=== PATIENT | female | born 1955 | race Caucasian/White ===

== ENCOUNTER → 2020-03-01 12:37 | Outpatient (CLI) | payer OTHER, BC, SELFPAY ==
--- NOTE | ~2020-03-01 | XR_ITS ---
XR shoulder RT min 2V DATE: 03/01/2020 13:28 INDICATION: Right shoulder pain TECHNIQUE: 4 views COMPARISON: None FINDINGS: There is prominent diffuse osteopenia. No fracture or dislocation, periosteal reaction or b one destruction or abnormal soft tissue calcification is detected. There is degenerative spurring of the thoracic spine. IMPRESSION: Prominent diffuse osteopenia Reviewed, dictated and finalized at location A.
== END ==
PROVIDERS: PCP Family Medicine; Visit Provider Family Medicine
DX: M25.511 Pain in right shoulder (principal); M85.811 Other specified disorders of bone density and structure, right shoulder
CPT/HCPCS: 73030

== ENCOUNTER 2020-06-04 08:31 | Outpatient (CLI) | payer OTHER, BC, SELFPAY ==
--- NOTE | ~2020-06-04 | MM_ITS ---
EXAMINATION: MM screening [facility] BI w emre HISTORY: Screening mammogram TECHNIQUE: Craniocaudal and mediolateral oblique 3-D tomosynthesis images were obtained and synthetic 2-D images were generated. CAD analysis was submitted and interpreted. COMPARISON: 12/01/2018, 07/23/2017, 02/07/2016 BREAST PARENCHYMAL COMPOSITION: There are scattered areas of fibroglandular density. FINDINGS: There is no evidence of suspicious mass, calcification, or architectural distortion to sugg est malignancy in either breast. There has been no suspicious interval change. IMPRESSION: 1. No mammographic evidence of malignancy. 2. Recommend routine screening mammography in one year. BI-RADS Category 1: Negative Reviewed, dictated and finalized at location A. ICAL SPECIALIST
== END 2020-06-04 08:32 | disposition home or self-care (01) ==
LOC: ANHIMG 08:36
PROVIDERS: PCP Family Medicine; Visit Provider Family Medicine
DX: Z12.31 Encounter for screening mammogram for malignant neoplasm of breast (principal)
CPT/HCPCS: 77063; 77067

== ENCOUNTER 2020-07-25 12:26 | Outpatient (CLI) | payer OTHER, BC, SELFPAY ==
--- NOTE | 2020-07-25 12:29 | ECHO_ITS ---
Patient Info Name: Raysa Herman Age: 64 years : 1955 Gender: Female Ht: 58 in Wt: 202 lbs BSA: 1.99 m2 HR: 73 bpm BP: 158 / 86 mmHg Heart Rhythm: Sinus Rhythm Technical Quality: Good Exam Date: 07/25/2020 12:55 PM Exam Location: [facility] Pulmonary Patient Status: Outpatient Admit Date: 07/25/2020 Staff Ordering Physician: Chasity Dumont PA-C Hair Blender: Licha Rose RDCS Attending Provider: Chasity Dumont PA-C Referring Physician: Julia WOODSON; Exam Type: CA echo doppler color flow Study Info Indications - NONRHEUMATIC AORTIC VALVE DISORDER Complete two-dimensional, color flow and Doppler transthoracic echocardiogram is performed. Summary 1. Complete two-dimensional, color flow and Doppler transthoracic echocardiogram is performed. 2. Left ventricular systolic function is normal, estimated at 65-70%. 3. There is no increased left ventricular wall thickness. 4. The left ventricular diastolic function is grade II diastolic dysfunction. 5. Left atrial chamber dimension is mildly enlarged. 6. There is mild aortic valve stenosis with a peak velocity of 220 cm/s, mean gradient of 11 mmHg, and aortic valve area of 1.5 cm2. 7. There is mild aortic valve calcification. 8. There is mild tricuspid valve regurgitation. 9. Mild pulmonary hypertension, estimated pulmonary arterial systolic pressure is 39 mmHg. Left Ventricle Left ventricular chamber dimension is normal. Left ventricular systolic function is normal, estimated at 65-70%. There is no increased left ventricular wall thickness. The left ventricular diastolic function is grade II diastolic dysfunction. Right Ventricle Right ventricular chamber dimension is normal. Right ventricular systolic function is normal. Left Atria Left atrial chamber dimension is mildly enlarged. Right Atria Right atrial chamber dimension is normal. Aortic Valve The aortic valve is trileaflet. There is mild aortic valve stenosis with a peak velocity of 220 cm/s, mean gradient of 11 mmHg, and aortic valve area of 1.5 cm2. There is no aortic valve regurgitation. There is mild aortic valve calcification. Pulmonic Valve The pulmonic valve is not well visualized. Mitral Valve The mitral valve has normal leaflets. There is trace mitral valve regurgitation. The mitral valve annulus is mildly calcified. Tricuspid Valve The tricuspid valve leaflets are normal. There is mild tricuspid valve regurgitation. Mild pulmonary hypertension, estimated pulmonary arterial systolic pressure is 39 mmHg. Pericardium/Pleural The pericardium appears normal. There is trivial pericardial effusion. Inferior Vena Cava Normal inferior vena cava with >50% collapse upon inspiration consistent with normal right atrial pressure, 5 mmHg. Aorta The aortic root size at the sinus of Valsalva is normal. Left Ventricular Outflow Tract Name Value Normal LVOT 2D LVOT Diameter 2.0 cm LVOT Doppler LVOT Peak Gradient 5 mmHg LVOT Mean Gradient 3 mmHg LVOT VTI 28 cm
== END 2020-07-25 12:27 | disposition home or self-care (01) ==
PROVIDERS: PCP Family Medicine; Visit Provider Physician Assistant
DX: I08.3 Combined rheumatic disorders of mitral, aortic and tricuspid valves (principal)
CPT/HCPCS: 93306

== ENCOUNTER → 2021-01-29 11:12 | Outpatient (CLI) | payer OTHER, SELFPAY ==
--- NOTE | ~2021-01-29 | XR_ITS ---
XR_CERV2-3V_CR DATE: 01/29/2021 11:26 INDICATION: Cervical radiculopathy TECHNIQUE: AP, open-mouth, lateral, swimmer views COMPARISON: None FINDINGS: There is straightening of the cervical spine. There is diffuse osteopenia. There is severe degenerative disc disease at C5-6 and C6-7 as well as uncovertebral joint spurring at C4-5 and to a greater extent C5-6 and C6-7. C1 and C2 are normally aligned and the odontoid process is intact. No fracture or dislocation or lock ed facet or prevertebral soft tissue swelling. IMPRESSION: Straightening Osteopenia Severe degenerative disc disease and prominent uncovertebral joint spurring at C5-6 and C6-7 Reviewed, dictated and finalized at Location A. Reviewed, dictated and finalized at location A.
== END ==
PROVIDERS: PCP Family Medicine; Visit Provider Physician Assistant
DX: M54.12 Radiculopathy, cervical region (principal); M85.88 Other specified disorders of bone density and structure, other site; M50.30 Other cervical disc degeneration, unspecified cervical region
CPT/HCPCS: 72040

== ENCOUNTER 2021-03-24 01:13 | Day surgery (SDC) | payer OTHER, SELFPAY ==
[2021-03-11 14:59] VITALS: BMI 47.2
[2021-03-24 08:45] VITALS: BP 183/77; PULSE 54; RESP 18; TEMP 36.6; O2SAT 100; BMI 45.7
--- NOTE | 2021-03-24 08:45 | WPDANESEPPF ---
Anes - Initial Pre Proc Eval Procedure: Operation Date: 03/24/21 09:30 Proposed Procedures p Screening Colonoscopy - Sebastian Wall MD Date/Time: 03/24/21 08:45 Surgeon: Sebastian Wall MD Pre Op Diagnosis: neoplasm screening Patient Data Age: 65 Gender: F Height: 1.47 m Weight: 102.5 kg Allergies Allergy/AdvReac Type Severity Reaction Status Date / Time propoxyphene Allergy Mild Nausea Verified 03/24/21 08:43 meperidine AdvReac Intermediate Vomiting Verified 03/24/21 08:43 NKFA Allergy Mild Unknown Uncoded 03/11/21 14:58 Home Medications Medication Instructions Recorded Confirmed Type blood sugar diagnostic #50 each 09/19/19 03/24/21 Rx blood-glucose meter #1 each 09/19/19 03/24/21 History blood-glucose meter #1 each 09/21/19 03/24/21 Rx garlic See Rx Instructions PO DAILY 06/27/20 03/24/21 History omega 5-raw-ubj-fish oil 1,000 mg 1 cap PO DAILY 06/27/20 03/24/21 History (120 mg-180 mg) capsule quinapril 40 mg tablet 40 mg PO BID #180 tablet 09/26/20 03/24/21 Rx amlodipine 5 mg tablet See Rx Instructions .ROUTE 09/30/20 03/24/21 Rx .COMPLEX #180 tablet metformin 500 mg tablet See Rx Instructions .ROUTE 12/27/20 03/24/21 Rx .COMPLEX #180 tablet metoprolol tartrate 50 mg tablet See Rx Instructions .ROUTE 12/30/20 03/24/21 Rx .COMPLEX #180 tablet sitagliptin 100 mg tablet See Rx Instructions .ROUTE 01/13/21 03/24/21 Rx .COMPLEX #90 tablet atorvastatin 10 mg tablet See Rx Instructions .ROUTE 01/20/21 03/24/21 Rx .COMPLEX #90 tablet meloxicam 15 mg tablet 15 mg PO DAILY #90 tablet 01/29/21 03/24/21 Rx empagliflozin 10 mg tablet See Rx Instructions .ROUTE 01/31/21 03/24/21 Rx .COMPLEX #90 tablet levothyroxine 137 mcg tablet See Rx Instructions .ROUTE 01/31/21 03/24/21 Rx .COMPLEX #90 tablet metoprolol tartrate 100 mg tablet See Rx Instructions .ROUTE 02/28/21 03/24/21 Rx .COMPLEX #180 tablet Patient hx anesthesia problems: none Family hx anesthesia problems: none Results Review: All pre-operative results and documents have been reviewed as part of the pre-operative evaluation. [facility] Past Medical History Medical History (Updated 02/13/21 @ 10:48 by Chasity Dumont PA-C) Hepatitis C antibody test negative (12/20/18) History of mammogram (~02/07/16) Pap smear for cervical cancer screening (~07/12/12) Surgical History Surgical History History of section (~1980) History of section (~1976) Family History Family History Father Diabetes mellitus Hypertension Carcinoma of colon Family history of Alzheimer's disease Family history of elevated blood lipids Mother Diabetes mellitus Hypertension Family history of elevated blood lipids Family history of cardiovascular disease Acute myocardial infarction Family history of kidney disease Family history of coronary artery disease Family history of lung cancer, Onset Age: 79 Grandparent Diabetes mellitus Social History Social History Smoking status: Never smoker Alcohol intake: never Substance use: never Substance use type: does not use Living arrangements: with family Additional living arrangements comments: lives with spouse Spiritual care concerns: No Anes - Eval Final PreProcedure Day of Procedure 03/24/21 08:45 Patient weight: morbidly obese Heart: regular rate and rhythm Lungs: clear to auscultation Airway: Mallampati scale class II Neurological: alert and oriented Last oral intake: >/= 8 hours ASA classification: III Emergent: no Anesthetic plan: proceed Anesthesia type and monitoring: general GIVS and standard monitoring Results Review: All pre-operative results and documents have been reviewed as part of the pre-operative evaluation. Informed Consent: The patient's anesthetic aminata
--- NOTE | 2021-03-24 08:52 | WPDGICN ---
Assessment and Plan Assessment and plan (1) Screening for colon cancer: Code(s): Z12.11 - Encounter for screening for malignant neoplasm of colon Status: Acute (2) Family history of colon cancer in father: Code(s): Z80.0 - Family history of malignant neoplasm of digestive organs Status: Acute Assessment and Plan: Patient's father had colon cancer. Suggest patient consider follow-up colonoscopy at 5 year intervals. Colonoscopy will be performed today. GI Consult Note Consult date/time: 03/24/21 08:52 HPI: Raysa Herman is a 65 year old female Presents for screening colonoscopy. Her last colonoscopy was 11 years ago. Patient reports that her current weight appetite and bowel movements are normal. She denies abdominal pain. She has had no bleeding. Family history is significant that her father had colon cancer. Review of Systems Review of Systems: All systems reviewed & are unremarkable except as noted in HPI and below PMFSH Past Medical History Medical History (Updated 03/24/21 @ 08:54 by Sebastian Wall MD) Hepatitis C antibody test negative (12/20/18) History of mammogram (~02/07/16) Pap smear for cervical cancer screening (~07/12/12) Surgical History Surgical History History of section (~1980) History of section (~1976) Family History Family History Father Diabetes mellitus Hypertension Carcinoma of colon Family history of Alzheimer's disease Family history of elevated blood lipids Mother Diabetes mellitus Hypertension Family history of elevated blood lipids Family history of cardiovascular disease Acute myocardial infarction Family history of kidney disease Family history of coronary artery disease Family history of lung cancer, Onset Age: 79 Grandparent Diabetes mellitus Social History Social History Smoking status: Never smoker Alcohol intake: never Substance use: never Substance use type: does not use Living arrangements: with family Additional living arrangements comments: lives with spouse Spiritual care concerns: No Meds Home Medications and Allergies Home Medications Medication Instructions Recorded Confirmed Type blood sugar diagnostic #50 each 09/19/19 03/24/21 Rx blood-glucose meter #1 each 09/19/19 03/24/21 History blood-glucose meter #1 each 09/21/19 03/24/21 Rx garlic See Rx Instructions PO DAILY 06/27/20 03/24/21 History omega 1-wnh-wxl-fish oil 1,000 mg 1 cap PO DAILY 06/27/20 03/24/21 History (120 mg-180 mg) capsule quinapril 40 mg tablet 40 mg PO BID #180 tablet 09/26/20 03/24/21 Rx amlodipine 5 mg tablet See Rx Instructions .ROUTE 09/30/20 03/24/21 Rx .COMPLEX #180 tablet metformin 500 mg tablet See Rx Instructions .ROUTE 12/27/20 03/24/21 Rx .COMPLEX #180 tablet metoprolol tartrate 50 mg tablet See Rx Instructions .ROUTE 12/30/20 03/24/21 Rx .COMPLEX #180 tablet sitagliptin 100 mg tablet See Rx Instructions .ROUTE 01/13/21 03/24/21 Rx .COMPLEX #90 tablet atorvastatin 10 mg tablet See Rx Instructions .ROUTE 01/20/21 03/24/21 Rx .COMPLEX #90 tablet meloxicam 15 mg tablet 15 mg PO DAILY #90 tablet 01/29/21 03/24/21 Rx empagliflozin 10 mg tablet See Rx Instructions .ROUTE 01/31/21 03/24/21 Rx .COMPLEX #90 tablet levothyroxine 137 mcg tablet See Rx Instructions .ROUTE 01/31/21 03/24/21 Rx .COMPLEX #90 tablet metoprolol tartrate 100 mg tablet See Rx Instructions .ROUTE 02/28/21 03/24/21 Rx .COMPLEX #180 tablet Allergies Allergy/AdvReac Type Severity Reaction Status Date / Time propoxyphene Allergy Mild Nausea Verified 03/24/21 08:43 meperidine AdvReac Intermediate Vomiting Verified 03/24/21 08:43 NKFA Allergy Mild Unknown Uncoded 03/11/21 14:58 Vital Signs Vital Signs - 24 hr
[2021-03-24] MEDS: LACTATED RINGERS 1,000 ML 150 ML IV CONT (09:00)
[2021-03-24 09:02] LABS: Glucose Point of Care 169 mg/dl (65-105)
[2021-03-24 09:34] VITALS: BP 133/70; PULSE 53; RESP 22; O2SAT 99
[2021-03-24 09:44] VITALS: BP 135/72; PULSE 50; RESP 21; O2SAT 100
[2021-03-24 09:54] VITALS: BP 183/86; PULSE 49; RESP 19; O2SAT 99
== END 2021-03-24 10:07 | disposition home or self-care (01) ==
PROVIDERS: PCP Family Medicine; Visit Provider Internal Medicine Gastroenterology
PROC: 0DJD8ZZ Inspection of Lower Intestinal Tract, Via Natural or Artificial Opening Endoscopic (ICD-10-PCS; CPT 45378; principal; 2021-03-24 09:30)
DX: Z12.11 Encounter for screening for malignant neoplasm of colon (principal); Z80.0 Family history of malignant neoplasm of digestive organs; K64.8 Other hemorrhoids; K57.30 Diverticulosis of large intestine without perforation or abscess without bleeding; B19.20 Unspecified viral hepatitis C without hepatic coma; E03.9 Hypothyroidism, unspecified; Z79.84 Long term (current) use of oral hypoglycemic drugs; E66.01 Morbid (severe) obesity due to excess calories; Z68.42 Body mass index [BMI] 45.0-49.9, adult
CPT/HCPCS: 45378; 82948; J2001; J2704; J7120

== ENCOUNTER → 2022-02-06 11:19 | Outpatient (CLI) | payer OTHER, SELFPAY ==
--- NOTE | ~2022-02-06 | XR_ITS ---
EXAMINATION: XR ankle LT min 3V DATE: 02/06/2022 11:37 INDICATION: Left ankle pain and swelling TECHNIQUE: Anteroposterior, lateral, mortise, and additional oblique view of the ankle were obtained. COMPARISON: None. FINDINGS: Bone alignment is normal. There is no fracture. 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 The soft tissues are unremarkable. Posterior and plantar calcaneal enthesophytes are noted. IMPRESSION: 1. No acute osseous abnormality. Reviewed, dictated and finalized at location A.
== END ==
PROVIDERS: PCP Family Medicine; Visit Provider Family Medicine
DX: M25.572 Pain in left ankle and joints of left foot (principal)
CPT/HCPCS: 73610

== ENCOUNTER 2022-04-24 09:01 | Outpatient (CLI) | payer OTHER, MEDICARE, SELFPAY ==
--- NOTE | ~2022-04-24 | DEXA_ITS ---
Bone Density Report Name: KATHY YOON Age: 66 Sex: Female Ethnicity: White Date of : 1955 Indication: postmenopausal; screening for osteoporosis; Referring Provider: ZEESHAN COLE Study: Bone densitometry was performed. Exam Date: April 24, 2022 Accession number: [id number] Bone Density: Region BMD T-score Z-score Classification AP Spine(L1-L4) 0.959 -0.8 1.0 Normal Femoral Neck (Left) 0.582 -2.4 -0.8 Osteopenia Total Hip (Left) 0.867 -0.6 0.7 Normal Femoral Neck (Right) 0.615 -2.1 -0.5 Osteopenia Total Hip (Right) 0.844 -0.8 0.5 Normal Total Hip Mean 0.855 -0.7 0.6 Normal World Health Organization criteria for BMD impression classify patients as: Normal (T-score at or above -1.0), Osteopenia (T-score between -1.0 and -2.5), or Osteoporosis (T-score at or below -2.5). 10-year Fracture Risk(1): Major Osteoporotic Fracture 11% Hip Fracture 1.9% Reported Risk Factors: [place] (), Neck BMD=0.582, BMI=44.7 (1) FRAX(R) Version 3.08. Fracture probability calculated for an untreated patient. Fracture probability may be lower if the patient has received treatment. Previous Exams: Region Exam Age BMD T-score BMD Change BMD Change Date g/cm2 vs Baseline vs Previous AP Spine (L1-L4) 04/24/2022 66 0.959 -0.8 0.030 (3.2%)# 0.002 (0.2%) 02/07/2016 60 0.957 -0.8 0.028 (3.0%)# 0.028 (3.0%)# 10/06/2012 56 0.929 -1.1 Total Hip(Left) 04/24/2022 66 0.867 -0.6 -0.147 (-14.5% -0.050 (-5.5%) 02/07/2016 60 0.917 -0.2 -0.097 (-9.5%) -0.097 (-9.5%) 10/06/2012 56 1.014 0.6 Total Hip(Right) 04/24/2022 66 0.844 -0.8 -0.159 (-15.9% -0.077 (-8.3%) 02/07/2016 60 0.920 -0.2 -0.082 (-8.2%) -0.082 (-8.2%) 10/06/2012 56 1.003 0.5 *Denotes significance at 95% confidence level, LSC for AP Spine = 0.022 g/cm2, LSC for Total Hip = 0.027 g/cm2 # Denotes dissimilar scan types or analysis methods Clinical Information Provided by Patient: Patient maximum height was 58 Menopause Age: 48 Onset of menses at age 13 Number of children 2 Impression: The patient has low bone mass, based on the Left Femoral Neck T-score. The patient has an estimated ten-year risk of hip fracture of 1.9% and an estimated ten-year risk of major fracture of 11%, based on the WHO FRAX algorithm. No significant bone loss was observed. Discussion: BONE DENSITY IS LOW AT ONE OR MORE SKELETAL SITES. Thi
--- NOTE | ~2022-04-24 | MM_ITS ---
EXAMINATION: MM screening susie BI w emre HISTORY: Screening TECHNIQUE: Craniocaudal and mediolateral oblique 3-D tomosynthesis images were obtained and synthetic 2-D images were generated. CAD analysis was submitted and interpreted. COMPARISON: No prior mammogram is available for comparison at this institution. BREAST PARENCHYMAL COMPOSITION: The breasts are almost entirely fatty. FINDINGS: There is no evidence of suspicious mass, calcification, or architectural distortion to sugg est malignancy in either breast. There has been no suspicious interval change. IMPRESSION: 1. No mammographic evidence of malignancy. 2. Recommend routine screening mammography in one year. BI-RADS Category 1: Negative Reviewed, dictated and finalized at location A.
== END 2022-04-24 09:02 | disposition home or self-care (01) ==
LOC: ANHIMG 09:02
PROVIDERS: PCP Family Medicine; Visit Provider Family Medicine
DX: Z12.31 Encounter for screening mammogram for malignant neoplasm of breast (principal); Z78.0 Asymptomatic menopausal state; M85.852 Other specified disorders of bone density and structure, left thigh; M85.851 Other specified disorders of bone density and structure, right thigh
CPT/HCPCS: 77063; 77067; 77080

== ENCOUNTER → 2023-03-05 10:21 | Outpatient (CLI) | payer OTHER, MEDICARE, SELFPAY ==
--- NOTE | ~2023-03-05 | XR_ITS ---
Right wrist Technique: PA, oblique, lateral, and ulnar deviation views were obtained. Clinical History: Pain Findings: No acute fracture or dislocation is seen. Osseous alignment is anatomic. Joint spaces are p reserved. Soft tissues are unremarkable. Impression: Unremarkable right wrist radiographs. Reviewed, dictated and finalized at location . Impression: Unremarkable right wrist radiographs.
== END ==
PROVIDERS: PCP Family Medicine; Visit Provider Family Medicine
DX: M25.531 Pain in right wrist (principal)
CPT/HCPCS: 73110

== ENCOUNTER 2023-10-01 09:26 | Outpatient (CLI) | payer OTHER, MEDICARE, SELFPAY ==
--- NOTE | ~2023-10-01 | MM_ITS ---
EXAMINATION: MM screening susie BI w emre HISTORY: Screening TECHNIQUE: Craniocaudal and mediolateral oblique 3-D tomosynthesis images were obtained and synthetic 2-D images were generated. CAD analysis was submitted and interpreted. COMPARISON: Comparison to multiple prior studies sequentially, with oldest reviewed study dated 05/21. BREAST PARENCHYMAL COMPOSITION: The breasts are almost entirely fatty. FINDINGS: There is no evidence of suspicious mass, calcification, or architectural distortion to sugg est malignancy in either breast. There has been no suspicious interval change. IMPRESSION: 1. No mammographic evidence of malignancy. 2. Recommend routine screening mammography in one year. BI-RADS Category 1: Negative Reviewed, dictated and finalized at location A.
== END 2023-10-01 09:27 | disposition home or self-care (01) ==
LOC: ANHIMG 09:28
PROVIDERS: PCP Family Medicine; Visit Provider Family Medicine
DX: Z12.31 Encounter for screening mammogram for malignant neoplasm of breast (principal)
CPT/HCPCS: 77063; 77067

== ENCOUNTER 2024-02-23 07:31 | Outpatient (CLI) | payer OTHER, MEDICARE, SELFPAY ==
--- NOTE | 2024-02-23 07:37 | ECHO_ITS ---
Patient Info Name: Raysa Herman Age: 68 years : 1955 Gender: Female Ht: 57 in Wt: 170 lbs BSA: 1.80 m2 HR: 66 bpm BP: 121 / 74 mmHg Heart Rhythm: Sinus Rhythm Technical Quality: Good Exam Date: 02/23/2024 7:46 AM Exam Location: Echo Lab Patient Status: Outpatient Admit Date: 02/23/2024 Staff Ordering Physician: Debbie Ramon DO Insurance Claims Examiner: Beckie Fletcher RDCS Attending Provider: Debbie Ramon DO Referring Physician: Shanta GROSS Exam Type: CA echo doppler color flow Study Info Indications R01.1 - Cardiac murmur, unspecified Complete two-dimensional, color flow and Doppler transthoracic echocardiogram is performed. Summary 1. Left ventricular chamber dimension is normal. 2. Left ventricular systolic function is normal, estimated at 65-70%. 3. The left ventricular diastolic function is grade I diastolic dysfunction. 4. Right ventricular systolic function is normal. 5. Left atrial chamber dimension is mildly enlarged. 6. There is mild aortic valve calcification. 7. There is mild aortic valve stenosis with a peak velocity of 241 cm/s, mean gradient of 13 mmHg, and aortic valve area of 1.8 cm2. 8. There is mild mitral valve regurgitation. 9. There is mild tricuspid valve regurgitation. Left Ventricle Left ventricular chamber dimension is normal. Left ventricular systolic function is normal, estimated at 65-70%. There is no increased left ventricular wall thickness. The left ventricular diastolic function is grade I diastolic dysfunction. Right Ventricle Right ventricular chamber dimension is normal. Right ventricular systolic function is normal. Left Atria Left atrial chamber dimension is mildly enlarged. Right Atria Right atrial chamber dimension is normal. Atrial Septum Intact interatrial septum visualized by color flow imaging. Aortic Valve The aortic valve is trileaflet. There is mild aortic valve stenosis with a peak velocity of 241 cm/s, mean gradient of 13 mmHg, and aortic valve area of 1.8 cm2. There is trace aortic valve regurgitation. There is mild aortic valve calcification. Pulmonic Valve The pulmonic valve is not well visualized. Mitral Valve There is mild mitral valve regurgitation. Tricuspid Valve There is mild tricuspid valve regurgitation. Pericardium/Pleural There is no pericardial effusion. Inferior Vena Cava Normal inferior vena cava with >50% collapse upon inspiration consistent with normal right atrial pressure, 3 mmHg. Aorta The aortic root size at the sinus of Valsalva is normal. Left Ventricular Outflow Tract Name Value Normal LVOT 2D LVOT Diameter 2.0 cm LVOT Doppler LVOT Peak Gradient 4 mmHg LVOT Mean Gradient 2 mmHg LVOT VTI 33 cm LVOT VTI/AV VTI Ratio 0.6 LVOT Stroke Volume 100 ml LVOT CO 4.5 l/min LVOT CI 2.5 l/min/m2 Pulmonic Valve Name Value Normal
== END 2024-02-23 07:32 | disposition home or self-care (01) ==
PROVIDERS: PCP Family Medicine; Visit Provider Family Medicine
DX: I08.3 Combined rheumatic disorders of mitral, aortic and tricuspid valves (principal); R01.1 Cardiac murmur, unspecified
CPT/HCPCS: 93306

== ENCOUNTER 2024-04-20 09:20 | Emergency (ER) | payer OTHER, MEDICARE, SELFPAY ==
--- NOTE | 2024-04-20 09:32 | ED.EAR ---
HPI - Ear Problem General Chief complaint: Ear Stated complaint: ear pain Time Seen by Provider: 04/20/24 09:32 Source: patient Mode of arrival: ambulatory Limitations: no limitations History of Present Illness HPI Narrative: Lisa is a 68-year-old female patient presenting to the clinic today with complaints of right ear pain x2 days. She reports she has had some nasal congestion for the past few days as well. Denies any fever or chills. Denies any dental pain. Related Data Home Medications Medication Instructions Recorded Confirmed blood-glucose meter #1 ea 09/19/19 04/20/24 calcium carbonate (Calcium 600) 600 mg PO DAILY 10/12/22 04/20/24 cholecalciferol (vitamin D3) 25 50 mcg PO DAILY 10/12/22 04/20/24 mcg (1,000 unit) capsule Allergies Allergy/AdvReac Type Severity Reaction Status Date / Time meperidine AdvReac Intermediate Vomiting Verified 04/20/24 09:42 propoxyphene AdvReac Mild Nausea Verified 04/20/24 09:42 Review of Systems Review of Systems: Pertinent positives per HPI. Patient denies any fever, chills, rash, headache, visual changes, dizziness, cough, shortness of breath, chest pain, palpitations, nausea, vomiting, diarrhea, constipation, abdominal pain, or any urinary issues. [facility] Past Medical History Medical History Aortic stenosis echo 07/25/20, mild Essential (primary) hypertension Hepatitis C antibody test negative (12/20/18) History of mammogram (~02/07/16) Hyperlipidemia Hypothyroidism, unspecified MRSA (methicillin resistant Staphylococcus aureus) LIBBY (obstructive sleep apnea) Osteopenia Pap smear for cervical cancer screening (~07/12/12) Vitamin D deficiency, unspecified Surgical History Surgical History History of section (~1980) History of section (~1976) Family History Family History Father Diabetes mellitus Hypertension Carcinoma of colon Family history of Alzheimer's disease Family history of elevated blood lipids Mother Diabetes mellitus Hypertension Family history of elevated blood lipids Family history of cardiovascular disease Acute myocardial infarction Family history of kidney disease Family history of coronary artery disease Family history of lung cancer, Onset Age: 79 Grandparent Diabetes mellitus Social History Social History Smoking status: Never smoker Alcohol intake: never Substance use: never Substance use type: does not use Lack of Transportation: No Lack of Food: Never True Current Housing: I Have Housing Concerned About Future Housing: No Difficulty Paying Gas/Electric Bills: No Difficulty Paying for Meds: No Currently Unemployed: No Education: High School Diploma/GED Difficulty w/ Childcare or Family Care: No Living arrangements: with family Additional living arrangements comments: lives with spouse Occupation/Education: retired Gender identity (if verbalized by the patient): Female Sexual Orientation (if Verbalized by the Patient): Straight or Heterosexual Spiritual care concerns: No Agree to blood products: Yes Comments At the time of my signature, I reviewed and agree with the nursing past medical, surgical, social, and family history. There is no relevant family history pertinent to the patient complaint. Exam Narrative: General: Well-developed, well nourished, in no apparent distress Head: Normocephalic, atraumatic Eyes: Pupils equally round and reactive to light bilaterally, EOM intact, sclera and conjunctive clear, no discharge, lids normal Ears: TMs intact with fluid noted behind the TM, left ear canals clear, right ear canal with cerumen impaction,debrox drops were instilled, ear irrigation was performed successfully, right ear canal red and swollen appearing, no drainage, grossly hearing normal. Nose: Nares patent, clear nasal discharge, no inflammation, no sinus tenderness. Mouth: Oral pharynx without lesions or masses, good dentition, MMM. Neck: Supple, trachea midline, no enlargement of anterior or posterior cervical nodes, no thyroid masses or goiter palpable. Cardio: Regular rate and rhythm, s1 and s2 normal, no murmur appreciated. Resp: Clear to auscultation bilaterally, no rhonchi, rales, wheezing or rubs Course Course Emergency Course: Portions of this record may have been created with voice recognition software. Level of Care: Express Care Visit Vital Signs Vital signs: Vital Signs Temperature 36.2 C L 04/20/24 09:33 Pulse Rate 71 04/20/24 09:33 Respiratory Rate 18 04/20/24 09:33 Blood Pressure 146/67 H 04/20/24 09:33 Pulse Oximetry 100 04/20/24 09:33 Oxygen Delivery Room Air 04/20/24 09:33 Temperature 36.2 C L 04/20/24 09:33 Pulse Rate 71 04/20/24 09:33 Respiratory Rate 18 04/20/24 09:33 Blood Pressure 146/67 H 04/20/24 09:33 Pulse Oximetry 100 04/20/24 09:33 Oxygen Delivery Room Air 04/20/24 09:33 Vital signs reviewed Procedures Ear Wax Removal Right Ear: Ear Wax Removal Date: 04/20/24 Cerumenolytic Used: other (Debrox) Results: Re-examined: cerumen removed completely TM Examination: other (TMs without bulging, serous otitis bilaterally) Ear Canal Exam: atraumatic and other (Erythemic with mild swelling) Patient Tolerated Procedure: well and no complications Complications: no problems Technique: ear canal irrigated and ear canal curetted Additional Comments: Verbal consent obtained for ear irrigation. Risk and benefits explained and patient voiced understanding. Ear irrigation performed using an elephant ear and spray water bottle. Mixture of 1/2 peroxide 1/2 water used to irrigate ear canal. Cerumen impaction cleared and TM visualized without redness. Grossly hearing normal. Patient tolerated procedure well Medical Decision Making MDM Narrative Medical decision making narrative: At the time of visit patient is resting comfortably on the exam table. Patient appears to be nontoxic. Medications: 5 Debrox ear drops was instilled into the right ear canal Procedures: Ear irrigation was performed with the right ear canal-successfully. Patient tolerated well Plan: I suspect patient has right-sided cerumen impaction, otalgia, serous otitis, and otitis externa. Ear irrigation was performed successfully to the right ear canal. Patient tolerated well. Prescription for Cortisporin was sent to the pharmacy. Supportive measures were discussed with the patient and they voiced understanding discharge instructions and agrees to treatment plan. Return precautions reviewed Differential Diagnosis Differential Diagnosis: Otitis media, otitis externa, eustachian tube dysfunction, cerumen impaction, upper respiratory infection, serous otitis Vital Signs Vital Signs: Vital Signs Temperature 36.2 C L 04/20/24 09:33 Pulse Rate 71 04/20/24 09:33 Respiratory Rate 18 04/20/24 09:33 Blood Pressure 146/67 H 04/20/24 09:33 Pulse Oximetry 100 04/20/24 09:33 Oxygen Delivery Room Air 04/20/24 09:33 Temperature 36.2 C L 04/20/24 09:33 Pulse Rate 71 04/20/24 09:33 Respiratory Rate 18 04/20/24 09:33 Blood Pressure 146/67 H 04/20/24 09:33 Pulse Oximetry 100 04/20/24 09:33 Oxygen Delivery Room Air 04/20/24 09:33 Discharge Plan Discharge Clinical Impression: Impacted cerumen, right ear Acute otalgia Qualifiers: Laterality: right Qualified Code(s): H92.01 - Otalgia, right ear Otitis externa Qualifiers: Otitis externa type: unspecified type Chronicity: acute Laterality: right Qualified Code(s): H60.501 - Unspecified acute noninfective otitis externa, right ear Acute serous otitis media Qualifiers: Laterality: bilateral Recurrence: non-recurrent Qualified Code(s): H65.03 - Acute serous otitis media, bilateral Patient Disposition: Home, Self-Care Condition: Stable Instructions: Antibiotic Form, Swimmer's Ear (ED), Earache (ED), Fluid In The Ear (Serous Otitis Media) (ED) Additional Instructions: Right ear irrigation was performed in the clinic today and was successful Ear canal appears red and inflamed-likely due to will cerumen impaction/irrigation Instill Cortisporin ear drops in the right ear for 3-5 days as prescribed May take [id number]-tge-qpihnkx Sudafed for nasal congestion and serous otitis-keep a monitor of your blood pressure while taking this if your blood pressure is increasing stop this medication. May take [id number]-[id number] Flonase and antihistamine such as Zyrtec or Claritin. Increase fluids and stay well hydrated May take Tylenol/Motrin as needed for pain Follow-up with your primary care doctor in 5-7 days if symptoms persist or sooner if they worsen Prescriptions: New lrzptrap-esbquclam-SI 3.5-10,000-1 mg/mL-unit/mL-% drops,suspension 4 drp RIGHT EAR Q8H 5 Days Qty: 10 0RF No Action cholecalciferol (vitamin D3) 25 mcg (1,000 unit) capsule 50 mcg PO DAILY levothyroxine 150 mcg tablet 150 mcg PO DAILY Qty: 90 0RF Mounjaro 10 mg/0.5 mL pen injector 10 mg subcut WEEKLY Qty: 6 0RF calcium carbonate [Calcium 600] 600 mg calcium (1,500 mg) tablet 600 mg PO DAILY (DME) blood-glucose meter Kit See Rx Instructions .ROUTE .MEDSUPPLY Qty: 1 Rx Instructions: As directed (DME) blood sugar diagnostic Strip See Rx Instructions .ROUTE .MEDSUPPLY Qty: 50 0RF Rx Instructions: ONE TOUCH ULTRA II (DME) blood-glucose meter [OneTouch Ultra2 Meter] Kit See Rx Instructions .ROUTE .MEDSUPPLY Qty: 1 0RF Rx Instructions: As directed lisinopril 40 mg tablet 40 mg PO DAILY Qty: 90 1RF metoprolol tartrate 100 mg tablet 100 mg PO BID Qty: 180 1RF metformin 500 mg tablet 1,000 mg PO BID Qty: 360 1RF pravastatin 10 mg tablet See Rx Instructions .ROUTE .COMPLEX Qty: 90 1RF Dose Instruction: TAKE 1 TABLET BY MOUTH EVERY DAY AT BEDTIME Rx Instructions: TAKE 1 TABLET BY MOUTH EVERY DAY AT BEDTIME Jardiance 25 mg tablet 25 mg PO DAILY Qty: 90 1RF amlodipine 5 mg tablet 5 mg PO BID Qty: 180 1RF meloxicam 15 mg tablet 15 mg PO DAILY Qty: 90 1RF metoprolol tartrate 50 mg tablet 50 mg PO BID Qty: 180 1RF Follow-up/Referrals: Debbie Ramon DO [Primary Care Provider] - Time of Disposition: 10:28 Quality NIHSS Nursing Documentation ED NIHSS nursing documentation: reviewed/agree
[2024-04-20 09:33] VITALS: BP 146/67; PULSE 71; RESP 18; TEMP 36.2; O2SAT 100
[2024-04-20] MEDS: CARBAMIDE PEROXIDE 6.5% OT SOLN 15 ML BTL 5 DROP RIGHT EAR (09:52)
[2024-04-20] MEDS: HYDROGEN PEROXIDE 3% SOLN(*SP) 473 ML BOTTLE 60 ML IRRIGATION (10:08)
== END 2024-04-20 10:32 | disposition home or self-care (01) ==
PROVIDERS: Emergency Provider Nurse Practitioner Family; PCP Family Medicine
DX: H61.21 Impacted cerumen, right ear (principal); H60.501 Unspecified acute noninfective otitis externa, right ear; H65.03 Acute serous otitis media, bilateral; I10 Essential (primary) hypertension; E78.5 Hyperlipidemia, unspecified; E03.9 Hypothyroidism, unspecified; M85.80 Other specified disorders of bone density and structure, unspecified site; E55.9 Vitamin D deficiency, unspecified; I35.0 Nonrheumatic aortic (valve) stenosis; Z86.14 Personal history of Methicillin resistant Staphylococcus aureus infection
CPT/HCPCS: 69210; 99213; A9270; G0463

== ENCOUNTER 2024-04-26 07:44 | Outpatient (CLI) | payer OTHER, MEDICARE, SELFPAY ==
--- NOTE | ~2024-04-26 | DEXA_ITS ---
Bone Density Report Name: KATHY YOON Age: 68 Sex: Female Ethnicity: White Date of : 1955 Indication: postmenopausal; screening for osteoporosis; Referring Provider: RENARD BLANCA Study: Bone densitometry was performed. Exam Date: April 26, 2024 Accession number: [id number] Bone Density: Region BMD T-score Z-score Classification AP Spine(L1-L4) 0.949 -0.9 1.1 Normal Femoral Neck (Left) 0.634 -1.9 -0.2 Osteopenia Total Hip (Left) 0.858 -0.7 0.7 Normal Femoral Neck (Right) 0.649 -1.8 -0.1 Osteopenia Total Hip (Right) 0.803 -1.1 0.3 Osteopenia Total Hip Mean 0.830 -0.9 0.5 Normal World Health Organization criteria for BMD impression classify patients as: Normal (T-score at or above -1.0), Osteopenia (T-score between -1.0 and -2.5), or Osteoporosis (T-score at or below -2.5). 10-year Fracture Risk(1): Major Osteoporotic Fracture 10% Hip Fracture 1.7% Reported Risk Factors: [place] (), Neck BMD=0.634, BMI=34.0 (1) FRAX(R) Version 3.08. Fracture probability calculated for an untreated patient. Fracture probability may be lower if the patient has received treatment. Clinical Information Provided by Patient: Has used the following medications: Vitamin D, Calcium Patient maximum height was 58 Menopause Age: 48 Does not regularly consume dairy products Drinks caffeinated beverages Onset of menses at age 13 Number of children 2 Impression: The patient has low bone mass, based on the Left Femoral Neck T-score. The patient has an estimated ten-year risk of hip fracture of 1.7% and an estimated ten-year risk of major fracture of 10%, based on the WHO FRAX algorithm. Discussion: BONE DENSITY IS LOW AT ONE OR MORE SKELETAL SITES. This patient's lowest T-score is low at one or more skeletal sites. It meets the World Health Organization's (WHO) criteria for ?low bone mass? (T-score between -1.0 and -2.5). The patient's 10-year risk of fracture as calculated by FRAX is less than the threshold where pharmacological therapy is recommended by the National Osteoporosis Foundation (NOF). However, all treatment decisions require clinical judgment and consideration of individual patient factors, including patient preferences, comorbidities, previous drug use, risk factors not captured in the FRAX model (e.g., frailty, falls, vitamin D deficiency, increased bone turnover, interval significant decline in bone density) and possible under or overestimation of fracture risk by FRAX. The patient should follow a healthful lifestyle (good nutrition with adequate calcium and vitamin D, and appropriate weight-bearing exercise). Follow-Up: Consider repeating this study in 2 to 3 years to reassess this patient's status, or sooner if there is some new clinical indication. Reported by: SAMAN on 04/26/2024 8:18:00 AM. Reviewed, dictated and finalized at location A. [facility]ITAL[facility]son
== END 2024-04-26 07:45 | disposition home or self-care (01) ==
LOC: ANHIMG 07:45
PROVIDERS: PCP Family Medicine; Visit Provider Nurse Practitioner
DX: M85.88 Other specified disorders of bone density and structure, other site (principal); M85.852 Other specified disorders of bone density and structure, left thigh; M85.851 Other specified disorders of bone density and structure, right thigh
CPT/HCPCS: 77080

== ENCOUNTER 2024-11-16 08:04 | Outpatient (CLI) | payer OTHER, MEDICARE, SELFPAY ==
--- NOTE | ~2024-11-16 | XR_ITS ---
EXAMINATION: XR chest 2V 11/16/2024 08:27 INDICATION: Cough. Afebrile. PROCEDURE: 2 view chest COMPARISON: No prior studies for comparison. FINDINGS: The lungs are clear. The cardiomediastinal silhouette is within normal limits. There are no pleural effusions. There is no pneumothorax suspected. IMPRESSION: 1: NO ACUTE CARDIOPULMONARY DISEASE. Reviewed, dictated and finalized at location A.
== END 2024-11-16 08:05 | disposition home or self-care (01) ==
PROVIDERS: PCP Nurse Practitioner; Visit Provider Nurse Practitioner
DX: R05.9 Cough, unspecified (principal)
CPT/HCPCS: 71046

== ENCOUNTER 2024-11-23 09:13 | Outpatient (CLI) | payer OTHER, MEDICARE, SELFPAY ==
--- NOTE | ~2024-11-23 | CT_ITS ---
CT Scan of the Chest without Contrast: Clinical Indication: Shortness of breath Technique: Contiguous sections were acquired throughout the chest without intravenous contrast. Dose reduction technique was used on this scan by utilizing automated exposure control and iterative recon struction technique. The dose-length product (DLP) was 205.54 mGy-cm. Findings: There is no evidence of any significant mediastinal, hilar or axillary lymphadenopathy. The mediastin al soft tissues appear normal. There is no evidence of pleural or pericardial effusion. There is linear left apical scarring. Lungs are otherwise clear. Images through the upper abdomen reveal no abnormalities. Impression: No significant abnormalities seen. Reviewed, dictated and finalized at location . Impression: No significant abnormalities seen.
== END 2024-11-23 09:14 | disposition home or self-care (01) ==
LOC: MICIMG 09:14
PROVIDERS: PCP Nurse Practitioner; Visit Provider Nurse Practitioner
DX: R06.02 Shortness of breath (principal)
CPT/HCPCS: 71250

== ENCOUNTER 2024-12-19 08:10 | Outpatient (CLI) | payer OTHER, MEDICARE, SELFPAY ==
--- OUTSIDE RECORDS SUMMARY | 2024-12-19 08:12 | XMS_ITS | Continuity of Care Document ---
Author Organization [facility] Address [address] [place] [address] [place] [address] Phone Care Team Providers Care Supervisor Stage Carpentry Name Role Phone Jatin Garcia DO Unavailable Unavailable Advance Directives Directive Yes / No Effective Date File Name No Information Encounters Encounter Description Practice Location Reason(s) For Visit Diagnoses Date Provider Providers Copied on Encounter [facility], [id number] [place] [address] [address], [place], [place], [id number], [place] tel:[phone] [facility] No Information Radha Gomez. [facility] [place], [address], [place]. [phone] Referring Provider: Jatin ALCARAZ, [facility] [place], [facility]. tel:[phone] Family History Family Member Type Diagnosis Age At Onset No Information Payers Payer name Insurance type Covered democrat ID Authoriza adair(s) [facility] [id number] Social History Type Description Quantity Date Captured Comments Sex Female Smoking Status No Information Chief Complaint And Reason For Visit No Information Reason For Referral Reason For Referral No Information History Of Present Illness Encounter Date Complaint History Of Prese nt Illness No Information Functional Status Date Functional Assessmen t No Information Instructions Date Instruction Additional Infor mation No Information Assessments Type Assessment Date No Information Patient Care Teams Name Effective Dates (start - stop) Status Members No Information
[2025-01-16 17:45] VITALS: BMI 28.2
--- NOTE | 2025-01-16 17:45 | P.SLEEP_ITS ---
Sleep Study Date of Study: 12/19/24 Ordering Provider: JULIA Stacy Interpreting Physician: Neyda Gipson DO Sleep Study Type: Polysomnogram Height: 1.47 m Weight: 61.235 kg Body Mass Index: 28.2 Neck Circumference (inches): 14 Spencer: 17 Reason for Sleep Study Excessive daytime sleepiness Sleep History The patient is a 68-year-old female who had a sleep study ordered by her primary care for evaluation of sleep apnea. The patient rarely awakens from sleep short of breath. She rarely awakens at night with heartburn, comatose, or cough. She frequently snores, and it is frequently loud enough that others complain. She denies having trouble sleeping when she has a cold. She occasionally wakes up gasping for air throughout the night. She occasionally has breathing problems at night observed by herself or others. She frequently sweats excessively at night. She rarely has heart palpitations or irregular heartbeats during the night. She frequently falls asleep during the day but never while driving.She denies sleep paralysis, common cataplexy, and hypnagogic/hypnopompic hallucinations. She denies having trouble at school or work due to sleepiness. She denies feeling afraid of going to sleep. She denies having nightmares. She occasionally remembers her dreams. She frequently has thoughts racing through her mind. She denies feeling sad or depressed. She frequently has anxiety. She occasionally has muscular tension. She occasionally notices parts of her body jerk. She rarely kicks during the night. She denies having crawling and aching feelings in her legs, but rarely has leg pain during the night. She denies grinding her teeth during sleep and denies awakening with morning jaw pain. She denies being bothered by pain during the day and denies being awakened by pain during the night. She denies waking up feeling stiff in the morning. She denies waking up with sore or achy muscles. She denies waking up with pain in the neck, hemispine, and other joints. She goes to bed between 12:30 to 1 a.m. every night. It takes her 15 minutes to fall asleep. She wakes up twice throughout the night to urinate and is able to fall back asleep immediately. She wakes up at 7 a.m. on weekdays and at 7:30 a.m. on the weekends. She typically gets five to six hours of sleep per night. She will stay in bed for two hours after waking up in the morning. She currently lives with her . She denies consuming any caffeinated beverages within two hours of bedtime. She engages in physical exercise before bedtime. She denies reading before falling asleep. She watches television before falling asleep. She takes naps in the afternoon or the evening, and they are refreshing. She consumes one caffeinated beverage per day. She denies tobacco, alcohol, and recreational drug use. [facility] Past Medical History Medical History Osteopenia Hepatitis C antibody test negative (12/20/18) Hyperlipidemia Aortic stenosis echo 07/25/20, mild Hypothyroidism, unspecified MRSA (methicillin resistant Staphylococcus aureus) Pap smear for cervical cancer screening (~07/12/12) History of mammogram (~02/07/16) Essential (primary) hypertension LIBBY (obstructive sleep apnea) Vitamin D deficiency, unspecified Surgical History Surgical History History of section (~1976) History of section (~1980) Family History Family History Father Diabetes mellitus Hypertension Carcinoma of colon Family history of Alzheimer's disease Family history of elevated blood lipids Mother Diabetes mellitus Hypertension Family history of elevated blood lipids Family history of cardiovascular disease Acute myocardial infarction Family history of kidney disease Family history of coronary artery disease Family history of lung cancer, Onset Age: 79 Grandparent Diabetes mellitus Social History Social History Smoking status: Never smoker Alcohol intake: never Substance use: never Substance use type: does not use Lack of Transportation: No Lack of Food: Never True Current Housing: I Have Housing Concerned About Future Housing: No Difficulty Paying Gas/Electric Bills: No Difficulty Paying for Meds: No Currently Unemployed: No Education: High School Diploma/GED Difficulty w/ Childcare or Family Care: No Living arrangements: with family Additional living arrangements comments: lives with spouse Occupation/Education: retired Gender identity (if verbalized by the patient): Female Sexual Orientation (if Verbalized by the Patient): Straight or Heterosexual Spiritual care concerns: No Agree to blood products: Yes Medications Home Medications ?Medication ?Instructions ?Recorded ?Confirmed ?Type blood sugar diagnostic #50 ea 09/19/19 11/16/24 Rx blood-glucose meter #1 ea 09/19/19 11/16/24 History blood-glucose meter (OneTouch #1 ea 09/21/19 11/16/24 Rx Ultra2 Meter kit) calcium carbonate (Calcium 600) 600 mg PO DAILY 10/12/22 11/16/24 History meloxicam 15 mg tablet 15 mg PO DAILY #90 tabs 09/19/24 11/16/24 Rx metoprolol tartrate 50 mg tablet 50 mg PO BID #180 tabs 09/28/24 11/16/24 Rx levothyroxine 112 mcg tablet See Rx Instructions .Route 10/03/24 11/16/24 Rx .COMPLEX #90 tabs tirzepatide 12.5 mg/0.5 mL 12.5 mg (0.5 mL) subcut WEEKLY #2 10/19/24 11/16/24 Rx subcutaneous pen injector mL lisinopril 40 mg tablet 40 mg PO DAILY #90 tabs 10/31/24 11/16/24 Rx amlodipine 5 mg tablet 5 mg PO BID #180 tabs 11/14/24 11/16/24 Rx albuterol sulfate 90 mcg/actuation 2 inh inhalation QHS #8.5 grams 11/16/24 Rx aerosol inhaler (Ventolin HFA) metoprolol tartrate 100 mg tablet 100 mg PO BID 11/16/24 11/16/24 History omeprazole 10 mg capsule,delayed 10 mg PO DAILY #90 caps 11/16/24 Rx release metformin 500 mg tablet See Rx Instructions .Route 11/23/24 Rx .COMPLEX #360 tabs eszopiclone 2 mg tablet 2 mg PO QHS #1 tablet 12/15/24 Rx ergocalciferol (vitamin D2) 1,250 1,250 mcg PO WEEKLY #12 caps 01/01/25 Rx mcg (50,000 unit) capsule pravastatin 10 mg tablet 10 mg PO QHS #90 tabs 01/15/25 Rx Sleep Procedure A full night polysomnogram using the [email or web address] multi-channel system recorded the standard physiologic parameters including EEG, EOG, submentalis EMG, anterior tibialis EMG, EKG, body position, nasal and oral airflow using nasal pressure sensor and thermistor.? Respiratory parameters of chest and abdominal movements were recorded with Respiratory Inductance Plethysmography belts. Oxygen saturation was recorded by pulse oximetry. Video monitoring was also performed. Sleep stages, periodic limb movements, and EEG arousals were scored in 30 second epochs according to the criteria of the AASM Scoring Manual. The Apnea-Hypopnea Index was calculated using [facility] guidelines for definition of hypopnea with 4% O2 desaturations while scoring respiratory events. Sleep Architecture The total recording time was 452.0 minutes.? The total sleep time was 389.5 minutes. Sleep latency was 14.3 minutes. REM latency was 80.5 minutes. Sleep efficiency was 86.2%. The patient had 12 awakenings for an awakening index of 1.8. Wake after sleep onset time was 48.0 minutes. The patient spent 15.0 minutes, 3.9% of total sleep time in Stage N1. The patient spent 267.5 minutes, 68.7% in Stage N2. The patient spent 19.5 minutes, 5.0% in Stage N3. The patient spent 87.5 minutes, 22.5% in Stage REM sleep. Respiratory Analysis The patient had 1 hypopnea and 1 central apnea for an overall Apnea Hypopnea Index of 0.3. The REM Apnea Hypopnea Index was 0.7. The NREM Apnea Hypopnea Index was 0.2. The patient had a Central Apnea Hypopnea Index of 0.2. There was no evidence of Romero-Hernandez Respirations. Arousals There were 77 total arousals for an arousal index of 11.9. There were 22 spontaneous arousals for an index of 3.4. There were 2 arousals due to respiratory events for an index of 0.3. There were 46 arousals due to periodic l imb movements for an index of 7.1.? There were 6 arousals due to isolated limb movements for an index of 0.9. Periodic Limb Movements The patient had 36 isolated limb movements with an index of 5.5. The patient had 434 periodic limb movements with an index of 66.9, which is elevated (normal <15). Patient had a total of 470 limb movements with a total limb movement index of 72.4. Oximetry Data The patient had an average oxygen saturation of 96.6% in sleep with a minimum o xygen saturation of 91.0% and a maximum oxygen saturation of 100.0%. The patient had 1 oxygen desaturations that were 4% or greater resulting in an Oxygen Desaturation Index of 0.2.? The patient spent 0 minutes of total sleep time with an oxygen saturation below 88%. Snoring Profile Snoring was rare throughout the study. Cardiac Profile The EKG showed normal sinus rhythm. No arrhythmias or PVCs were seen.The patient had an average pulse rate of 67.4 bpm with a minimum pulse of rate of 54.0 bpm and a maximum pulse rate of 89.0 bpm.? EEG Profile No signs of seizure activity seen. Assessment and Plan Assessment and Plan (1) PLMD (periodic limb movement disorder): Code(s): G47.61 - Periodic limb movement disorder Status: Acute Assessment and Plan: The patient had an overall AHI of 0.3 with desaturation down to 91%. This is not consistent with sleep-disordered breathing. The patient had a significant number of limb movements during the study with the majority being periodic in nature. Approximately 10% of the periodic limb movements caused arousals in the patient's sleep. The patient's sleep history does not suggest Restless Leg Syndrome. I recommend that the patient have a serum ferritin drawn for evaluation of iron deficiency anemia. If the patient has a serum ferritin less than 75 ng/mL, I recommend starting a daily iron supplement and a Vitamin C supplement for better absorption. If the serum fe rritin is greater than 75 ng/mL, I recommend starting a dopamine agonist and titrating the dose until symptoms resolve. There are nonpharmacological methods to treat limb movements including daily exercise, stretching calf muscles before bed, avoiding excessive amounts of caffeine and alcohol, vitamin B supplementation, magnesium lotion massaged into legs before bed, and use of a weighted blanket. Data The data obtained during this sleep study is adequate for interpretation. Certification This sleep study has been reviewed by a board certified sleep medicine physician.
== END 2024-12-20 07:02 | disposition home or self-care (01) ==
LOC: ANHCSM 08:11
PROVIDERS: PCP Family Medicine; Visit Provider Nurse Practitioner
DX: G47.33 Obstructive sleep apnea (adult) (pediatric) (principal); G47.61 Periodic limb movement disorder; I10 Essential (primary) hypertension
CPT/HCPCS: 95810